=== PATIENT | female | born 1980 | race Caucasian/White ===

== ENCOUNTER 2023-03-16 01:30 | Emergency (ER) | payer SELFPAY ==
[~2023-03-16] VITALS: Ht 170.2 cm; Wt 58.1 kg
[2023-03-16 01:54] VITALS: BP 158/96; PULSE 125; RESP 17; TEMP 97.8; O2SAT 99
[2023-03-16 02:45] VITALS: BP 158/96; PULSE 125; RESP 17; TEMP 98; O2SAT 99
== END 2023-03-16 02:45 ==
LOC: MED 01:30
DX: Z02.89 Encounter for other administrative examinations (principal); R00.0 Tachycardia, unspecified; F15.10 Other stimulant abuse, uncomplicated; Z88.0 Allergy status to penicillin
CPT/HCPCS: 93005; 99283